=== PATIENT | male | born 1980 | race Hispanic/Latino ===

== ENCOUNTER 2025-06-29 00:35 | Emergency (ER) | payer SELFPAY ==
[2025-06-29 01:41] LABS: HIV (1/2) Antibody/Antigen Non-Reactive (NonReactive); HIV 1/2 INDEX 0.08 S/CO (<1.00)
[2025-06-29 13:53] LABS: Hep C Index 0.11 S/CO (0-0.79)
[2025-06-29 13:54] LABS: Hep C IgG Ab NONREACTIVE S/CO (NonReactive)
[2025-06-29 14:32] LABS: HBSAB Concentration 10.65 mIU/mL
== END 2025-06-29 01:01 | disposition home or self-care (01) ==
LOC: CSHERS 00:35
DX: Z03.818 Encounter for observation for suspected exposure to other biological agents ruled out (principal); W46.0XXA Contact with hypodermic needle, initial encounter
CPT/HCPCS: 36415; 86706; 86803; 87389; 99283

== ENCOUNTER 2025-07-19 03:10 | Emergency (ER) | payer OTHER, SELFPAY ==
[2025-07-19 04:29] LABS: Free T4 (Free Thyroxine) 0.86 ng/dL (0.70-1.48)
[2025-07-19] MEDS ORDERED: Iopamidol 300 61% 100 ML VIAL FS ONE (10:29)
== END 2025-07-19 05:43 | disposition home or self-care (01) ==
LOC: CSHERS 03:10
DX: R22.1 Localized swelling, mass and lump, neck (principal)
CPT/HCPCS: 70491; 76536; 84439; 84443; Q9967